=== PATIENT | female | born 1975 | race Caucasian/White ===

== ENCOUNTER 2016-08-21 09:50 | Day surgery (SDC) | payer OTHER ==
--- NOTE | ~2016-08-21 | OP ---
Record Of Operation [facility] [address] [place]. [address] NAME: MICHELLE WICK : 79 STATUS : [facility]#: [id number] AGE: 40 ADM/REG DATE : 08/21/16 MR#: [id number] REPORT SERV DATE: 08/22/16 DICTATED BY: JORGE ERNST DATE: 08/21/16 REPORT STATUS : Draft TRANSCRIBED BY: MODL DATE: 08/21/16 DATE OF PROCEDURE: 08/21/2016 PREOPERATIVE DIAGNOSIS: Thyroid isthmus nodule, 4 cm. POSTOPERATIVE DIAGNOSIS: Thyroid isthmus nodule, 4 cm. PROCEDURE: 1. Right hemithyroidectomy and isthmusectomy (partial). 2. NIM monitoring of superior recurrent laryngeal nerve. SURGEON: Jorge Ernst M.D. ANESTHESIA: General. COMPLICATIONS: No complications. COUNTS: All counts correct following the procedure. ESTIMATED BLOOD LOSS: 10 mL. PREOPERATIVE INFORMED CONSENT: We discussed the risks and benefits of surgery including, but not limited to bleeding, infection, possible superior and/or recurrent laryngeal nerve injury resulting in temporary or permanent deficits, possible need for reoperation, completion thyroidectomy, possible postoperative hypoparathyroidism. DETAILS OF PROCEDURE: The patient was intubated without difficulty using a NIM endotracheal tube. The NIM monitor was turned on, calibrated, and noted to be functioning properly. The neck was then cleaned and prepped in usual sterile fashion. Following this, a midline incision was marked out and injected with 1% lidocaine and 1:100,000 epinephrine for hemostasis. Following this, a #15 blade was used to make an incision down the underlying subcutaneous tissues. Electrocautery was used to perform sharp dissection down to the precervical fascia. Midline fascia was then divided, and the strap muscles were retracted laterally. There was a large nodule involving the entire thyroid isthmus extending over the right hand side of the thyroid. The lesion was dissected out from surrounding tissues dividing the feeding vessels using bipolar as well as Harmonic scalpel. The lesion was dissected off the underlying tracheal wall, was followed on to the anterior aspect of the left thyroid lobe, then divided using bipolar and Harmonic scalpel. Then dissecting on the right hand side, there was more of this lesion extending over into the right lobe of the thyroid. The portion of the medial segment of the right lobe of the thyroid was removed en bloc with the large thyroid nodule. The specimen was oriented with pathology and sent for frozen section. 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 No obvious evidence of malignancy, and frozen cells deferred to permanent. Wound was then copiously irrigated with sterile saline. Any bleeding sites were cauterized using bipolar cautery. The midline fascia was closed using a running 3-0 Vicryl followed by skin closure using 4-0 Vicryl and skin closure using a 4-0 Prolene subcuticular closure and followed by Record Of Operation [address] [address] NAME: MICHELLE WICK : 79 STATUS : [facility] PAT#: [id number] AGE: 40 ADM/REG DATE : 08/21/16 MR#: [id number] REPORT SERV DATE: 08/22/16 DICTATED BY: JORGE ERNST DATE: 08/21/16 REPORT STATUS : Draft TRANSCRIBED BY: MODL DATE: 08/21/16 benzoin, followed by Mastisol Steri-Strips Telfa and a Tegaderm. The patient was awakened from anesthesia and taken to recovery room in stable condition. LARS/VALENTINA Jorge Ernst M.D. / [id number] CC: Shan Alonzo M.D.
[~2016-08-21 09:50] MED LIST: FISH-EPA1000 MG PO; VICTOZA18 MG/3 ML SC
== END 2016-08-21 18:03 | disposition home or self-care (01) ==
LOC: SDC 09:50
PROVIDERS: Otolaryngology
PROC: 0GBH0ZZ Excision of Right Thyroid Gland Lobe, Open Approach (ICD-10-PCS; principal; 2016-08-21 11:15)
DX: D34 Benign neoplasm of thyroid gland (principal); E88.81 Metabolic syndrome and other insulin resistance; E28.2 Polycystic ovarian syndrome; E11.649 Type 2 diabetes mellitus with hypoglycemia without coma; Z80.9 Family history of malignant neoplasm, unspecified; Z82.49 Family history of ischemic heart disease and other diseases of the circulatory system; Z83.49 Family history of other endocrine, nutritional and metabolic diseases; Z79.899 Other long term (current) drug therapy; Z98.890 Other specified postprocedural states
CPT/HCPCS: 82962; 84703; 88307; 88331; J0690; J2250; J2270; J2405; J2710; J3010